=== PATIENT | female | born 1985 | race Caucasian/White ===

== ENCOUNTER 2019-03-26 18:37 | Emergency (ER) | payer SELFPAY ==
[~2019-03-26] VITALS: Ht 160 cm; Wt 81.6 kg
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
[2019-03-26] MEDS ORDERED: diazePAM 5 MG TABLET PO ONE (19:15)
[2019-03-26] MEDS ORDERED: NEOMY/BACITR/POLYMYXIN OINT PACKET. TP ONE (19:15)
--- NOTE | 2019-03-26 19:18 | RAD ---
CT HEAD WO CONTRAST dated 03/26/2019 6:46 PM. Comparison: None. Clinical Indication: Pain after injury. Technical factors: Contiguous 5 mm axial images of the head were obtained from the skull base to the vertex. No contrast was administered. One or more of the following individualized dose reduction techniques were utilized for this examination: Automated exposure control, Adjustment of the mA and/or kV according to patient size, Use of iterative reconstruction technique. Findings: Ventricles and sulci are within normal limits for age. No evidence of ventricular shift or mass effect. Brain parenchyma is of normal attenuation. There is no evidence of hemorrhage or extra-axial collection. Visualized paranasal sinuses and mastoid air cells are clear. No acute osseous abnormality. Impression: No evidence of acute intracranial abnormality. Electronically signed by: Miki Obrien MD (03/26/2019 7:15 PM) [facility]
[2019-03-26 19:34] VITALS: BP 104/53
== END 2019-03-26 19:35 | disposition home or self-care (01) ==
LOC: ER 18:37
DX: S40.211A Abrasion of right shoulder, initial encounter (principal); S40.812A Abrasion of left upper arm, initial encounter; R51 Headache; F41.9 Anxiety disorder, unspecified; F17.210 Nicotine dependence, cigarettes, uncomplicated; Z88.2 Allergy status to sulfonamides; V48.5XXA Car driver injured in noncollision transport accident in traffic accident, initial encounter; Y92.488 Other paved roadways as the place of occurrence of the external cause; Y93.89 Activity, other specified; Y99.8 Other external cause status
CPT/HCPCS: 70450; 99285-25